=== PATIENT | male | born 1995 | race African-American/Black ===

== ENCOUNTER 2019-08-14 04:05 | Emergency (ER) | payer OTHER ==
[~2019-08-14] VITALS: Ht 154.9 cm; Wt 56.7 kg
[2019-08-14 05:54] VITALS: BP 119/64; TEMP 98.1
== END 2019-08-14 05:54 | disposition home or self-care (01) ==
LOC: ED 04:05
DX: S30.0XXA Contusion of lower back and pelvis, initial encounter (principal); S20.222A Contusion of left back wall of thorax, initial encounter; S20.221A Contusion of right back wall of thorax, initial encounter; S29.011A Strain of muscle and tendon of front wall of thorax, initial encounter; Y04.2XXA Assault by strike against or bumped into by another person, initial encounter
CPT/HCPCS: 81000; 96372; 99283; J1885